=== PATIENT | female | born 1985 | race Caucasian/White ===

== ENCOUNTER 2016-11-21 21:16 | Emergency (ER) | payer OTHER ==
[2016-11-21 22:52] VITALS: BP 117/75
== END 2016-11-21 22:52 | disposition home or self-care (01) ==
LOC: ED 21:16
DX: S09.90XA Unspecified injury of head, initial encounter (principal); Y04.2XXA Assault by strike against or bumped into by another person, initial encounter; Y93.89 Activity, other specified; Y92.89 Other specified places as the place of occurrence of the external cause; Y99.8 Other external cause status

== ENCOUNTER 2017-10-22 04:23 | Emergency (ER) | payer MEDICAID ==
[~2017-10-22] VITALS: Ht 157.5 cm; Wt 58.7 kg
[2017-10-22 04:42] VITALS: Ht 157.5 cm; Wt 58.7 kg
[2017-10-22 05:15] VITALS: BP 125/76
== END 2017-10-22 05:15 | disposition home or self-care (01) ==
LOC: ED 04:23
DX: N39.0 Urinary tract infection, site not specified (principal); F17.210 Nicotine dependence, cigarettes, uncomplicated; Z71.6 Tobacco abuse counseling; Z88.1 Allergy status to other antibiotic agents
CPT/HCPCS: 99406